=== PATIENT | male | born 1975 | race Caucasian/White ===

== ENCOUNTER 2018-09-20 20:30 | Emergency (ER) | payer OTHER ==
[~2018-09-20] VITALS: Ht 180.3 cm; Wt 107.7 kg
[2018-09-20 20:40] VITALS: BP 121/81
--- NOTE | 2018-09-20 20:42 | NUR ---
PT RETURNED TO LOBBY IN STABLE CONDITION
--- NOTE | 2018-09-20 21:29 | NUR ---
PT PRESENTS TO ED WITH ASTHMA EXACERBATION. SOB/DYSPNEA, BILAT UPPER LOBE EXPIRATORY WHEEZING. NON-PRODUCTIVE COUGH. O2SAT 97%. AT HOME WHEN SOB BEGAN. WAS TAKING ZYRTEC FOR SEASONAL ALLERGIES BUT NO LONGER HELPING. NO ALBUTEROL OR SIMILAR INHALER AT HOME. NO REFILLS. A&OX4. POSITIONED IN BED FOR COMFORT. ER MD AWARE. CONTINUE TO MONITOR.
--- NOTE | 2018-09-20 21:29 | NUR ---
PT AMBULATED TO BED 02.
[2018-09-20] MEDS ORDERED: methylPREDNISolone SS 125 MG in WATER STERILE 2 ML IM ONE (21:50)
[2018-09-20] MEDS ORDERED: ALBUTEROL SULFATE/IPRATROPIU 3 ML SOL IH ONE (21:50)
--- NOTE | 2018-09-20 21:55 | NUR ---
RT AT BEDSIDE FOR BREATHING TX.
[2018-09-20 22:25] VITALS: BP 119/78
--- NOTE | 2018-09-20 22:25 | NUR ---
Patient discharged with v/s stable. Written and verbal after care instructions given and explained. Patient alert, oriented and verbalized understanding of instructions. Ambulatory with steady gait. All questions addressed prior to discharge. ID band removed. Patient advised to follow up with PMD. Rx of PREDNISONE AND ALBUTEROL given. Patient educated on indication of medication including possible reaction and side effects. Opportunity to ask questions provided and answered.
== END 2018-09-20 22:25 | disposition home or self-care (01) ==
LOC: EDBD 20:30 → MED 20:30
DX: J45.901 Unspecified asthma with (acute) exacerbation (principal)
CPT/HCPCS: 71045; 94640; 96372; 99283; J2930; J7620; Q0092